=== PATIENT | female | born 1985 | race African-American/Black ===

== ENCOUNTER 2024-05-31 07:21 | Emergency (ER) | payer MEDICAID, OTHER ==
[~2024-05-31] VITALS: Ht 167.6 cm; Wt 95.0 kg
[2024-05-31 07:36] VITALS: O2SAT 99
[2024-05-31] MEDS: ACETAMINOPHEN 500MG TABLET PO ONE (08:11)
[2024-05-31] MEDS: CYCLOBENZAPRINE 10MG TABLET PO ONE (08:12)
[2024-05-31] MEDS: KETOROLAC 30MG/ML VIAL IM ONE (08:12)
[2024-05-31] MEDS ORDERED: IBUP-2029 MT (11:31)
[2024-05-31] MEDS ORDERED: LIDO700A15 TP (11:32)
[2024-05-31 12:15] VITALS: BP 169/79; PULSE 71; RESP 18; TEMP 37.00296; O2SAT 100
== END 2024-05-31 12:18 | disposition home or self-care (01) ==
LOC: ER 07:21
DX: M54.40 Lumbago with sciatica, unspecified side (principal)
CPT/HCPCS: 99283; 81025; 72100; 96372; J1885